=== PATIENT | female | born 1960 | race Caucasian/White ===

== ENCOUNTER 2021-09-29 07:27 | Outpatient (CLI) | payer OTHER | END 2021-09-29 07:28 | disposition home or self-care (01) | LOC: CSHCT 07:27 | PROVIDERS: ATTEND Internal Medicine Hematology & Oncology | DX: C79.2 Secondary malignant neoplasm of skin (principal) | CPT/HCPCS: 71260; 74177; 82565 ==

== ENCOUNTER 2022-06-01 14:16 | Outpatient (CLI) | payer OTHER ==
[~2022-06-01 14:16] MED LIST: Magnevist 469MG/ML 20 ML VIAL ONE
== END 2022-06-01 14:17 | disposition home or self-care (01) ==
LOC: CSHMRI 14:16
PROVIDERS: ATTEND Internal Medicine Hematology & Oncology
DX: Z85.3 Personal history of malignant neoplasm of breast (principal); C79.51 Secondary malignant neoplasm of bone
CPT/HCPCS: 70553; 82565